=== PATIENT | male | born 2000 | race Hispanic/Latino ===

== ENCOUNTER 2019-11-19 18:54 | Emergency (ER) | payer BC, OTHER ==
[2019-11-20 12:19] LABS: SARS-CoV-2 MS2 Positive; SARS-CoV-2 N Gene Negative; SARS-CoV-2 S Gene Negative; SARS-CoV-2 orf1ab Negative
== END 2019-11-19 19:32 | disposition home or self-care (01) ==
LOC: ERS 18:54
DX: R06.02 Shortness of breath (principal); Z20.828 Contact with and (suspected) exposure to other viral communicable diseases
CPT/HCPCS: 87635; 99283; U0003